=== PATIENT | female | born 1995 ===

== ENCOUNTER 2025-03-02 12:35 | Outpatient (REF) | payer BC, SELFPAY ==
[2025-03-02 15:56] LABS: Magnesium 1.9 mg/dL (1.6-2.6)
== END 2025-03-02 12:36 | disposition home or self-care (01) ==
LOC: NCHCN 12:35
PROVIDERS: Visit Provider Physician Assistant
DX: F43.89 Other reactions to severe stress (principal); F41.9 Anxiety disorder, unspecified
CPT/HCPCS: 82533; 83735